=== PATIENT | female | born 1960 | race Two or more races ===

== ENCOUNTER 2020-08-08 16:16 | Emergency (ER) | payer SELFPAY ==
[2020-08-08] MEDS ORDERED: ONDANSETRON 4 MG TAB.RAPDIS PO ONE (17:29)
--- NOTE | 2020-08-08 17:29 | ER Document Report ---
ED Medical Screen (RME) - General Chief Complaint: Blood Pressure Problem Stated Complaint: LIGHTHEADED,ELEVATED BLOOD PRESSURE Time Seen by Provider: 08/08/20 17:05 Primary Care Provider: GEOFF NUÑEZ FNP [Primary Care Provider] - Follow up as needed TRAVEL OUTSIDE OF THE [place] IN LAST 30 DAYS: No - HPI Notes: 08/08/20 17:26 60-year-old female to the emergency department with complaints of elevated blood pressure, intermittent chest pain, headache, dizziness for the past week. She states is been getting a little bit worse. She states she feels both dizzy and like she is going to pass out. She denies any fevers or chills. She denies any cough. Denies any positive COVID-19 exposures. She states she takes losartan and HCTZ and she did take her medicines today. She states her blood pressure is been high as 176 systolic at home. Brief medical screening exam, no focal neuro deficit. I performed a brief medical screening exam on the patient determined that the patient needs further evaluation and management by main side provider. I have placed initial orders to help expedite care. - Related Data Allergies/Adverse Reactions: No Known Allergies Allergy (Verified 08/08/20 17:13) Home Medications: thyroid. htn. dm. cholesterol Past Medical History - Social History Chew tobacco use (# tins/day): No Frequency of alcohol use: Rare Drug Abuse: None - Past Medical History Cardiac Medical History: Reports: Hx Hypercholesterolemia, Hx Hypertension Endocrine Medical History: Reports: Hx Diabetes Mellitus Type 2 Past Surgical History: Reports: Hx Cholecystectomy - Immunizations Hx Diphtheria, Pertussis, Tetanus Vaccination: Yes Physical Exam - Vital signs Vitals: Temp Pulse Resp BP Pulse Ox 98.4 F 78 18 191/89 H 95 08/08/20 16:24 08/08/20 16:24 08/08/20 16:24 08/08/20 16:24 08/08/20 16:24 Course - Vital Signs Vital signs: Temp Pulse Resp BP Pulse Ox 99.9 F 77 18 178/102 H 100 08/08/20 17:15 08/08/20 17:15 08/08/20 17:15 08/08/20 17:15 08/08/20 17:15 Doctor's Discharge - Discharge Referrals: SAVANNAH,GEOFF, D[employer]IST [Primary Care Provider] - Follow up as needed
--- NOTE | 2020-08-08 17:52 | RADIOLOGY REPORT (SQ) ---
EXAM DESCRIPTION: CT HEAD WITHOUT IMAGES COMPLETED DATE/TIME: 08/08/2020 5:37 pm REASON FOR STUDY: dizziness COMPARISON: None. TECHNIQUE: Axial images acquired through the brain without intravenous contrast. Images reviewed wi th bone, brain and subdural windows. Additional sagittal and coronal reconstructions were generated. Images stored on PACS. All CT scanners at this facility use dose modulation, iterative reconstruction, and/or weight based d osing when appropriate to reduce radiation dose to as low as reasonably achievable (ALARA). [facility]: Dose Right [facility]: CareDose [facility]: Dose Right [facility]: Teradose 4D [facility]: LawPath RADIATION DOSE: CT Rad equipment meets quality standard of care and radiation dose reduction techniq ues were employed. CTDIvol: 53.2 mGy. DLP: 964 mGy-cm. mGy. LIMITATIONS: None. FINDINGS: VENTRICLES: Normal size and contour. CEREBRUM: No masses. No hemorrhage. No midline shift. No evidence for acute infarction. Normal gra y/white matter differentiation. No areas of low density in the white matter. CEREBELLUM: No masses. No hemorrhage. No alteration of density. No evidence for acute infarction. EXTRAAXIAL SPACES: No fluid collections. No masses. ORBITS AND GLOBE: No intra- or extraconal masses. Normal contour of globe without masses. CALVARIUM: No fracture. PARANASAL SINUSES: No fluid or mucosal thickening. SOFT TISSUES: No mass or hematoma. OTHER: No other significant finding. IMPRESSION: NORMAL BRAIN CT WITHOUT CONTRAST. EVIDENCE OF ACUTE STROKE: NO. COMMENT: Quality ID # [id number]: Final reports with documentation of one or more dose reduction techniques (e.g., Automated exposure control, adjustment of the mA and/or kV according to patient size, use of iterative reconstruction technique) TECHNICAL DOCUMENTATION: JOB ID: [id number] 2010 [employer]- All Rights Reserved Reading location - IP/workstation name: [email or web address]
--- NOTE | 2020-08-08 17:55 | RADIOLOGY REPORT (SQ) ---
EXAM DESCRIPTION: CHEST SINGLE VIEW IMAGES COMPLETED DATE/TIME: 08/08/2020 4:22 pm REASON FOR STUDY: chest pain COMPARISON: 10/25/2014 EXAM PARAMETERS: NUMBER OF VIEWS: One view. TECHNIQUE: Single frontal radiographic view of the chest acquired. RADIATION DOSE: NA LIMITATIONS: None. FINDINGS: LUNGS AND PLEURA: No opacities, masses or pneumothorax. No pleural effusion. MEDIASTINUM AND HILAR STRUCTURES: No masses. Contour normal. HEART AND VASCULAR STRUCTURES: Heart normal in size. Normal vasculature. BONES: No acute findings. HARDWARE: None in the chest. OTHER: No other significant finding. IMPRESSION: NO ACUTE RADIOGRAPHIC FINDING IN THE CHEST. TECHNICAL DOCUMENTATION: JOB ID: [id number] 2010 [employer]- All Rights Reserved Reading location - IP/workstation name: [email or web address]
[2020-08-08 19:15] LABS: ABSOLUTE EOSINOPHILS # (AUTO) 0.2 10^3/uL (0.0-0.6); ABSOLUTE LYMPHOCYTES (AUTO) 1.8 10^3/uL (0.5-4.7); ABSOLUTE MONOCYTES (AUTO) 0.5 10^3/uL (0.1-1.4); ABSOLUTE NEUT (AUTO) 3.4 10^3/uL (1.7-8.2); BASOPHILS % (AUTO) 0.4 % (0-2); EOSINOPHILS % (AUTO) 3.2 % (0-6); HEMATOCRIT 38.9 % (36.0-47.0); HEMOGLOBIN 12.7 g/dL (12.0-15.5); LYMPHOCYTES % (AUTO) 30.6 % (13-45); MEAN CORPUSCULAR HEMOGLOBIN 26.5 pg (27.0-33.4); MEAN CORPUSCULAR HGB CONC 32.7 g/dL (32.0-36.0); MEAN CORPUSCULAR VOLUME 81 fl (80-97); MONOCYTES % (AUTO) 8.7 % (3-13); PLATELET COUNT 287 10^3/uL (150-450); RED BLOOD COUNT 4.79 10^6/uL (3.72-5.28); RED CELL DISTRIBUTION WIDTH 14.6 % (11.5-14.0); SEGMENTED NEUTROPHILS % (AUTO) 57.1 % (42-78); TOTAL CELLS COUNTED % (AUTO) 100 %; WHITE BLOOD COUNT 5.9 10^3/uL (4.0-10.5)
[2020-08-08 19:31] LABS: ALBUMIN 4.7 g/dL (3.5-5.0); ALKALINE PHOSPHATASE 113 U/L (38-126); ANION GAP 9 (5-19); ASPARTATE AMINO TRANSFERASE 39 U/L (14-36); BILIRUBIN,DIRECT 0.2 mg/dL (0.0-0.4); BILIRUBIN,TOTAL 0.6 mg/dL (0.2-1.3); BLOOD UREA NITROGEN 9 mg/dL (7-20); CARBON DIOXIDE 30 mmol/L (22-30); CHLORIDE 100 mmol/L (98-107); GLUCOSE 108 mg/dL (75-110); POTASSIUM 4.2 mmol/L (3.6-5.0); TOTAL PROTEIN 7.5 g/dL (6.3-8.2)
--- NOTE | 2020-08-08 21:15 | ER Document Report ---
ED Blood Pressure Problem - General Chief Complaint: High Blood Pressure Stated Complaint: LIGHTHEADED,ELEVATED BLOOD PRESSURE Time Seen by Provider: 08/08/20 17:05 Primary Care Provider: GEOFF NUÑEZ FNP [Primary Care Provider] - Follow up as needed TRAVEL OUTSIDE OF THE [place] IN LAST 30 DAYS: No - HPI Notes: Patient is a 60-year-old female with a past medical history of hypertension and high cholesterol who presents with headache and high blood pressure. Patient states that for the past week she has had high blood pressure in the 160s systolic. She is also had some pain around her para cervical muscles and her head. She has tried Tylenol without relief. Patient called her PCP who said to go to the ER if symptoms do not improve. Patient has an appointment with her PCP on Saturday. She states she has intermittent tightness in her chest. No nausea vomiting. No shortness of breath. No abdominal pain. She denies any cardiac history. Patient states she takes 100 mg of losartan daily. She states she did take her medicine today. - Related Data Allergies/Adverse Reactions: No Known Allergies Allergy (Verified 08/08/20 17:13) Home Medications: thyroid. htn. dm. cholesterol Past Medical History - General Information source: Patient - Social History Smoking Status: Never Smoker Chew tobacco use (# tins/day): No Frequency of alcohol use: Rare Drug Abuse: None Family History: Reviewed & Not Pertinent Patient has homicidal ideation: No - Past Medical History Cardiac Medical History: Reports: Hx Hypercholesterolemia, Hx Hypertension Endocrine Medical History: Reports: Hx Diabetes Mellitus Type 2 Past Surgical History: Reports: Hx Cholecystectomy - Immunizations Hx Diphtheria, Pertussis, Tetanus Vaccination: Yes Review of Systems - Review of Systems Notes: CONSTITUTIONAL: No fever, fatigue or weight loss. SKIN: No rash. HENT: No congestion, ear pain, or sore throat. EYES: No recent vision problems or eye pain. ENDOCRINE: No polyuria or polydipsia. CARDIOVASCULAR: Positive for intermittent chest tightness. RESPIRATORY: No cough, shortness of breath, congestion, or wheezing. GASTROINTESTINAL: No abdominal pain, nausea, vomiting, bloody stools or diarrhea. GENITOURINARY: No dysuria. MUSCULOSKELETAL: No joint pain or swelling. LYMPHATIC: No swollen glands. NEUROLOGIC: No seizures. Positive for headache. HEMATOLOGIC: No unusual bruising or bleeding. PSYCHIATRIC: No depression or anxiety. Physical Exam - Vital signs Vitals: Temp Pulse Resp BP Pulse Ox 98.4 F 78 18 191/89 H 95 08/08/20 16:24 08/08/20 16:24 08/08/20 16:24 08/08/20 16:24 08/08/20 16:24 Interpretation: Normal Notes: VITAL SIGNS: Hypertension GENERAL: No acute distress, non-toxic appearance. HEAD: Normal with no signs of head trauma. EYES: EOMI, conjunctiva normal, no discharge. EARS: Hearing grossly intact. NOSE: Normal. NECK: Normal range of motion, no tenderness, supple, no lymphadenopathy, No adenopathy, no JVD. Discomfort to palpation of bilateral paracervical and trapezius muscles. CHEST: Clear breath sounds bilaterally. No wheezes, rales, or rhonchi. CARDIAC: Regular rate and rhythm. S1 and S2, without murmurs, gallops, or rubs. VASCULAR: No Edema. Peripheral pulses normal and equal in all extremities. ABDOMEN: Normal and soft with no tenderness, no masses or pulsatile masses. GENITOURINARY: Normal, No tenderness LYMPATHTIC: No lymphadenopathy noted. MUSCULOSKELETAL: Good range of motion of all major joints. Extremities without clubbing, cyanosis or edema. NEUROLOGICAL: Alert and oriented x 3. No focal sensory or strength deficits. Speech normal. Follows commands appropriately. PSYCHIATRIC: Normal Affect, judgement and mood. SKIN: Normal appearance with no rashes or lesions. Course - Re-evaluation Re-evalutation: 08/08/20 21:49 Heart score is 3. Patient's blood pressure is 154/73. Exam does seem consistent with a tension headache because she had worsening symptoms with palpation of the trapezius and paracervical muscles bilaterally. I will treat her pain. She does mention she had some discomfort with inspiration so a d-dimer was ordered. We will also obtain a second troponin and reevaluate. Patient's d-dimer and troponins were negative. Her EKG is unremarkable. She is not having any chest pain currently. Patient does have an appointment with her PCP on Saturday. I did offer her admission for the intermittent chest pain but she declined. She states she would like to see her PCP and do this outpatient. Patient was told to discuss with her PCP about possibly adding on another blood pressure medicine. I also told her to take her blood pressure 3 times a day and record this so she can show her PCP on Saturday. Patient is very agreeable to this. She was given strict return precautions. 08/09/20 02:40 - Vital Signs Vital signs: Temp Pulse Resp BP Pulse Ox 98.2 F 76 12 161/82 H 96 08/08/20 21:01 08/08/20 21:01 08/09/20 00:01 08/09/20 00:01 08/09/20 00:01 - Laboratory Result Diagrams: 08/08/20 18:20 08/08/20 18:20 Laboratory results interpreted by me: 08/08/20 08/08/20 18:20 18:20 MCH 26.5 L RDW 14.6 H AST 39 H - Diagnostic Test Radiology reviewed: Image reviewed, Reports reviewed - EKG Interpretation by Me EKG shows normal: Sinus rhythm Rate: Normal Rhythm: NSR When compared to previous EKG there are: No significant change Additional EKG results interpreted by me: 08/08/20 21:50 EKG interpreted by me. Sinus rhythm at a rate of 73. QTc 450. No acute ST changes. No significant change from previous EKG. Discharge - Discharge Clinical Impression: Hypertension Qualifiers: Hypertension type: unspecified Qualified Code(s): I10 - Essential (primary) hypertension Condition: Stable Disposition: HOME, SELF-CARE Instructions: High Blood Pressure ([facility]) Additional Instructions: Please take your blood pressure at breakfast, lunch, and dinner and bring a log book to your family doctor on Saturday. Return to the ER for any return of symptoms such as chest pain, headache, or elevated blood pressure. Referrals: GEOFF NUÑEZ FNP [Primary Care Provider] - Follow up as needed
[2020-08-08] MEDS ORDERED: KETOROLAC TROMETHAMINE 60 MG/2 ML SDV IM ONE (23:27)
[2020-08-09 00:13] VITALS: BP 161/82
--- NOTE | 2020-08-09 07:22 | EKG REPORT ---
SEVERITY:- NORMAL ECG - SINUS RHYTHM : Confirmed by: Kirill Rondon MD 09-Aug-2020 07:21:21
== END 2020-08-09 00:17 | disposition home or self-care (01) ==
LOC: ER 16:16
DX: R51 Headache (principal); R42 Dizziness and giddiness; I10 Essential (primary) hypertension; E78.00 Pure hypercholesterolemia, unspecified; E11.9 Type 2 diabetes mellitus without complications; Z90.49 Acquired absence of other specified parts of digestive tract
CPT/HCPCS: 93005; 99285; 96372; 36415; 85025; 80053; 84484; 85379; 71045; 70450; 93010; J1885